=== PATIENT | male | born 1955 | race Caucasian/White ===

== ENCOUNTER → 2018-05-26 | Outpatient (CLI) | payer SELFPAY ==
--- NOTE | 2018-05-26 11:40 | PCVCIMAG ---
APPROVED REPORT Study performed: 05/26/2018 09:21:44 Exam: Stress Echocardiogram Indication: Family history of CAD Patient Location: Echo lab Stress Nurse: Ashlee Eduardo RN Status: routine Ht: 5 ft 11 in HR: 83 bpm BP: 114/70 mmHg Rhythm: RBBB Medical History Medical History: Family history of CAD Cardiac Risk Factors: FHX of CAD Procedure The patient underwent an Exercise Stress Test using the Tahir Protocol. Blood pressure, heart rate, and EKG were monitored. An Echocardiogram was performed by dermatology technician in four stages in quad fashion. At peak stress, four selected images were obtained and placed side by side with resting images for comparison. Stress Test Details Stress Test: Exercise stress testing was performed using a Tahir protocol. HR Resting HR: 83 bpmMax Heart Rate (APMHR): 157 bpm Max HR Achieved: 169 bpmTarget HR (85% APMHR): 133 bpm % of APMHR: 107 Recovery HR: 102 bpm HR response to stress: Normal HR response to stress BP Resting BP: 114/70 mmHg Max BP: 176/76 mmHg Recovery BP: 158/72 mmHg BP response to stress: Normal blood pressure response to stress. ECG Resting ECG: Sinus Rhythm, RBBB Stress ECG: Sinus Rhythm, RBBB Recovery ECG: Sinus Rhythm, RBBB Clinical Reason for Termination: Maximal effort Exercise duration: 10 min 46 sec Highest Stage Achieved: Stage 4: 4.2 mph at 16% grade. Exercise capacity: 13.40 METs Overall Exercise Capacity for Age: Good Pre-Stress Echo The resting Echocardiogram showed normal left ventricular contractility with an estimated Ejection Fraction of about 55-60%. Normal wall motion in all segments on baseline images. Normal wall motion in all segments on baseline images. Post-Stress Echo The stress Echocardiogram showed normal left ventricular contractility with an estimated Ejection Fraction of about 60-65%. Normal augmentation of wall motion in all segments on post stress images. Clinical No clinical or ECG evidence for ischemia. Conclusion Clinical Response: Non-ischemic Exercise Capacity: Average Stress ECG Response: Non-ischemic Stress Echo Images: Non-ischemic The left ventricle is normal in size and wall thickness in both the rest and stress images. Calcium score in 2018 was 0. Other Information Study Quality: Adequate <Conclusion> The left ventricle is normal in size and wall thickness in both the rest and stress images. Calcium score in 2018 was 0.
== END | disposition home or self-care (01) ==
LOC: PCVCIMAG 10:29
PROVIDERS: ATTEND Internal Medicine Cardiovascular Disease
DX: E78.5 Hyperlipidemia, unspecified (principal); E78.00 Pure hypercholesterolemia, unspecified; Z82.49 Family history of ischemic heart disease and other diseases of the circulatory system
CPT/HCPCS: 93325; 93351